=== PATIENT | male | born 1935 | race African-American/Black ===

== ENCOUNTER 2018-11-13 11:39 | Emergency (ER) | payer MEDICARE ==
[~2018-11-13] VITALS: Ht 167.6 cm; Wt 64.5 kg
[2018-11-13 11:42] VITALS: Ht 167.6 cm; Wt 64.5 kg
[2018-11-13] MEDS ORDERED: DECADRON4 MG PO (11:49)
[2018-11-13] MEDS ORDERED: FUROSEMIDE20 MG PO (11:49)
[2018-11-13] MEDS ORDERED: FERROUS SULFAT325 MG PO (11:49)
[2018-11-13] MEDS ORDERED: GLUCOPHAGE500 MG PO (11:50)
[2018-11-13] MEDS ORDERED: ZOFRAN4 MG PO (11:50)
[2018-11-13] MEDS ORDERED: PRINIVIL20 MG PO (11:50)
[2018-11-13] MEDS ORDERED: FLOMAX0.4 MG PO (11:51)
[2018-11-13] MEDS ORDERED: VOLTAREN75 MG PO (12:37)
[2018-11-13 14:46] VITALS: BP 119/61
== END 2018-11-13 14:40 | disposition home or self-care (01) ==
LOC: D.ER 11:39
DX: M25.561 Pain in right knee (principal)